=== PATIENT | female | born 1995 | race African-American/Black ===

== ENCOUNTER 2016-11-08 22:31 | Observation (INO) | payer OTHER ==
[~2016-11-08] VITALS: Ht 167.6 cm; Wt 61.9 kg
[~2016-11-08 22:31] MED LIST: AMOXICILLIN500 M1 PO; BACTRIM,SEPT1 TABLET PO; METROGEL-VAGINA70 GM VG; MIDOL COMPLETE1 EACH PO; MOTRIN600 MG PO; MOTRIN800 MG; NOHOMEMEDS; PROAIR HFA8.5 GM IH; SLOW RELEASE I160 MG PO; TRAMADOL HCL50 MG PO; ULTRAM50 MG PO; VENTOLIN HFA18 GM IH; ZOFRAN ODT8 MG PO
[2016-11-08 23:32] LABS: HEMATOCRIT 40.4 % (36.0-46.0); MCH 29.1 PG (29.0-34.0); MCHC 32.4 G/DL (30.0-36.0); MCV 89.8 FL (83-99); RBC DIS.WIDTH-CV 14.8 % (11.8-14.6); RBC DIS.WIDTH-SD 48.7 % (39-53); WHITE BLOOD COUNT 10.7 K/uL (4.1-10.2)
[2016-11-08 23:44] LABS: CHLORIDE 105 mEq/L (99-109); SODIUM 141 mEq/L (136-147)
[2016-11-08 23:46] LABS: GLUCOSE 145 mg/dL (70-99)
[2016-11-08 23:47] LABS: ANION GAP 13 MEQ/L (2-14); MEAN PLAT.VOLUME 10.1 uM^3 (9.5-12.4)
[2016-11-08 23:48] LABS: TOTAL BILIRUBIN 0.8 mg/dL (0.0-1.0)
[2016-11-08 23:49] LABS: ALKALINE PHOSPHATASE 53 IU/L (3-129); GFR ESTIMATE (CALCULATED) > 59 mL/min/
[2016-11-08 23:51] LABS: UREA NITROGEN (BUN) 9 mg/dL (9-23)
[2016-11-08 23:53] LABS: LIPASE 7 U/L (1.0-51.0)
[2016-11-09 00:01] LABS: QUANTITATIVE HCG < 4.0 MIU/ML
[2016-11-09 04:14] LABS: ADD MIUA? YES; BILIRUBIN NEGATIVE; BLOOD NEGATIVE; COLOR YELLOW ((YELLOW)); GLUCOSE (STRIP) NEGATIVE; KETONES 5; LEUKOCYTES NEGATIVE; NITRITE NEGATIVE; PROTEIN (STRIP) NEGATIVE; SPECIFIC GRAVITY 1.042 (1.000-1.030); UROBILINOGEN 0.2 MG/DL (0.2-1.0)
[2016-11-09 04:37] LABS: BACTERIA 3+ /HPF; EPITHELIAL CELLS RARE /HPF; MUCUS TRACE /LPF; WHITE BLOOD CELLS 0-5 /HPF (0-5)
[2016-11-09 06:49] LABS: PLAT.SUFFICIENCY ADEQUATE; PLATELET CLUMPS PRESENT - PLATELET COUNT APPEARS ADQ.
[2016-11-09 06:52] LABS: PLATELET COUNT ND K/uL (156-360)
[2016-11-09 07:43] VITALS: BP 99/57
[2016-11-09 08:00] VITALS: BP 102/60
[2016-11-09 11:39] VITALS: BP 100/55
[2016-11-09 12:03] VITALS: BP 86/51
[2016-11-09 14:56] VITALS: BP 101/63
[2016-11-09] MEDS ORDERED: TYLENOL EXTRA500 MG PO (15:33)
[2016-11-09 21:00] VITALS: BP 116/70
[2016-11-10] VITALS: BP 118/73
[2016-11-10 04:00] VITALS: BP 104/64
[2016-11-10 05:44] LABS: EOSINOPHIL (%) 1.4 % (0-5); EOSINOPHIL COUNT 0.1 K/uL (0-0.3); HEMATOCRIT 33.4 % (36.0-46.0); IMMATURE GRANULOCYTE (%) 0.2 % (0.0-0.7); INSTRUMENT ABS NEUTROPHIL CT 2.8 K/uL; LYMPHOCYTE COUNT 1.6 K/uL (1.0-2.8); MCH 28.2 PG (29.0-34.0); MCHC 31.4 G/DL (30.0-36.0); MCV 89.5 FL (83-99); MONOCYTE (%) 9.5 % (3-12); MONOCYTE COUNT 0.5 K/uL (0-0.8); NEUTROPHIL COUNT 2.8 K/uL (1.8-6.4); RBC DIS.WIDTH-CV 15.3 % (11.8-14.6); RBC DIS.WIDTH-SD 50.4 % (39-53); RED BLOOD COUNT 3.73 M/uL (3.80-5.20)
[2016-11-10 06:34] LABS: ANION GAP 8 MEQ/L (2-14); CHLORIDE 111 MEQ/L (99-109); GFR ESTIMATE (CALCULATED) > 59 mL/min/; SAMPLE HEMOLYSIS CHECK 0; SAMPLE ICTERIC CHECK 0; SAMPLE LIPEMIA CHECK 0; SODIUM 142 MEQ/L (136-147); UREA NITROGEN (BUN) 6 mg/dL (9-23)
[2016-11-10 06:37] LABS: GLUCOSE 79 mg/dL (70-99); POTASSIUM 3.8 MEQ/L (3.7-5.4)
[2016-11-10 06:55] LABS: ABS NEUTROPHIL COUNT 2.9; ANISOCYTOSIS 1+; ATYPICAL LYMPHOCYTE 0.9 %; EOSINOPHIL ABS CT 0.2; EOSINOPHILS 3.5 % (0-5.0); LYMPHOCYTES 32.2 % (15.0-45.0); MACROCYTES 1+; METAMYELOCYTES 0.9 %; PLAT.SUFFICIENCY ADEQUATE; PLATELET COUNT 203 K/uL (156-360); SEG.NEUTROPHILS 58.2 % (46.0-76.0)
[2016-11-10 07:35] VITALS: BP 117/73
[2016-11-10] MEDS ORDERED: FLAGYL500 MG PO (10:44)
[2016-11-10] MEDS ORDERED: LEVAQUIN750 MG PO (10:46)
[2016-11-10 12:30] VITALS: BP 122/72
[2016-11-10] MEDS ORDERED: PREDNISONE50 MG PO (20:36)
[2016-11-10] MEDS ORDERED: PEPCID20 MG PO (20:36)
[2016-11-10] MEDS ORDERED: BENADRYL50 MG PO (20:36)
[2016-11-10] MEDS ORDERED: EPIPEN ADU0.3 MG/0.3 IM (20:38)
== END 2016-11-10 13:00 | disposition home or self-care (01) ==
LOC: EME 22:31 → EDOF 11-09 05:26 → 5WEST 11-09 05:26 → EDOF 11-09 05:26 → 5WEST 11-09 07:22
PROVIDERS: Hospitalist; Physician Assistant
DX: K52.9 Noninfective gastroenteritis and colitis, unspecified (principal); N39.0 Urinary tract infection, site not specified; E87.6 Hypokalemia; I95.9 Hypotension, unspecified; R60.0 Localized edema; E86.0 Dehydration; F17.210 Nicotine dependence, cigarettes, uncomplicated
CPT/HCPCS: 74177; 80048; 80053; 81003; 83690; 84702; 85025; 85027; 87077; 87086; 87177; 87186; 87329; 87493; 99281; 99284; G0378; J0696; J1200; J1630; J1650; J2270; J2405; J2765; J2930; J3010; J3480; J7030; J7040; J7050; S0028; S0030

== ENCOUNTER 2016-11-10 16:14 | Emergency (ER) | payer OTHER ==
[~2016-11-10] VITALS: Ht 167.6 cm; Wt 61.9 kg
[~2016-11-10 16:14] MED LIST changes: +FLAGYL500 MG PO; +LEVAQUIN750 MG PO; +TYLENOL EXTRA500 MG PO
[2016-11-10 17:00] LABS: HEMATOCRIT 35.5 % (36.0-46.0); MCH 28.8 PG (29.0-34.0); MCHC 32.4 G/DL (30.0-36.0); MCV 88.8 FL (83-99); MEAN PLAT.VOLUME 9.8 uM^3 (9.5-12.4); PLATELET COUNT 227 K/uL (156-360); RBC DIS.WIDTH-CV 15.2 % (11.8-14.6); RBC DIS.WIDTH-SD 50.2 % (39-53); WHITE BLOOD COUNT 3.9 K/uL (4.1-10.2)
[2016-11-10 17:13] LABS: CHLORIDE 110 mEq/L (99-109); POTASSIUM 3.7 mEq/L (3.7-5.4); SODIUM 138 mEq/L (136-147)
[2016-11-10 17:16] LABS: ANION GAP 8 MEQ/L (2-14)
[2016-11-10 17:17] LABS: GLUCOSE 161 mg/dL (70-99)
[2016-11-10 17:18] LABS: GFR ESTIMATE (CALCULATED) > 59 mL/min/
[2016-11-10 17:19] LABS: UREA NITROGEN (BUN) 6 mg/dL (9-23)
[2016-11-10 17:26] LABS: QUANTITATIVE HCG < 4.0 MIU/ML
[2016-11-10] MEDS ORDERED: PREDNISONE50 MG PO (20:36)
[2016-11-10] MEDS ORDERED: PEPCID20 MG PO (20:36)
[2016-11-10] MEDS ORDERED: BENADRYL50 MG PO (20:36)
[2016-11-10] MEDS ORDERED: EPIPEN ADU0.3 MG/0.3 IM (20:38)
[2016-11-10 20:55] VITALS: BP 115/61
== END 2016-11-10 20:55 | disposition home or self-care (01) ==
LOC: EME 16:14
PROVIDERS: Emergency Medicine
DX: Z71.1 Person with feared health complaint in whom no diagnosis is made (principal)
CPT/HCPCS: 80048 91; 84702; 85027; 99281; 99285; J1200; J2060; J7030; S0028

== ENCOUNTER 2017-05-11 06:39 | Emergency (ER) | payer OTHER ==
[~2017-05-11] VITALS: Ht 167.6 cm; Wt 54.2 kg
[~2017-05-11 06:39] MED LIST changes: +BENADRYL50 MG PO; +EPIPEN ADU0.3 MG/0.3 IM; +PEPCID20 MG PO; +PREDNISONE50 MG PO
[2017-05-11] MEDS ORDERED: NORCO 5/3251 TABLET PO (07:24)
[2017-05-11] MEDS ORDERED: PEN-VEE K,VEET500 MG PO (07:24)
[2017-05-11 07:41] VITALS: BP 115/63
== END 2017-05-11 07:41 | disposition home or self-care (01) ==
LOC: EME 06:39
DX: K02.9 Dental caries, unspecified (principal); Z87.891 Personal history of nicotine dependence
CPT/HCPCS: 99281; 99283

== ENCOUNTER 2017-07-06 12:00 | Emergency (ER) | payer OTHER ==
[~2017-07-06] VITALS: Ht 170.2 cm; Wt 52.8 kg
[~2017-07-06 12:00] MED LIST changes: +NORCO 5/3251 TABLET PO; +PEN-VEE K,VEET500 MG PO
[2017-07-06 14:33] LABS: HEMOGLOBIN 9.4 G/DL (11.9-15.5); MCH 24.7 PG (29.0-34.0); MCHC 31.3 G/DL (30.0-36.0); MCV 78.7 FL (83-99); PLATELET COUNT 199 K/uL (156-360); RBC DIS.WIDTH-SD 53.8 % (39-53); RED BLOOD COUNT 3.81 M/uL (3.80-5.20); WHITE BLOOD COUNT 9.7 K/uL (4.1-10.2)
[2017-07-06 14:41] LABS: ALBUMIN 3.9 g/dL (3.2-4.8)
[2017-07-06 14:42] LABS: CHLORIDE 105 mEq/L (99-109); POTASSIUM 3.8 mEq/L (3.7-5.4); SODIUM 137 mEq/L (136-147)
[2017-07-06 14:44] LABS: GLUCOSE 96 mg/dL (70-99); TOTAL PROTEIN 7.3 g/dL (6.4-8.3)
[2017-07-06 14:46] LABS: TOTAL BILIRUBIN 0.6 mg/dL (0.0-1.0)
[2017-07-06 14:47] LABS: ALKALINE PHOSPHATASE 69 IU/L (3-129)
[2017-07-06 14:48] LABS: CREATININE 0.8 mg/dL (0.6-1.3); GFR ESTIMATE (CALCULATED) > 59 mL/min/
[2017-07-06 14:49] LABS: AST (GOT) 12 IU/L (2-34); UREA NITROGEN (BUN) 12 mg/dL (9-23)
[2017-07-06 14:50] LABS: ALT (GPT) 11 IU/L (3-49)
[2017-07-06 14:51] LABS: LIPASE 6 U/L (1.0-51.0)
[2017-07-06 14:57] LABS: QUANTITATIVE HCG < 4.0 MIU/ML
[2017-07-06] MEDS ORDERED: NORCO 5/3251 TABLET PO (16:02)
[2017-07-06 16:21] VITALS: BP 100/62
[2017-07-07] MEDS ORDERED: NAPROSYN500 MG PO (23:25)
[2017-07-07] MEDS ORDERED: BACTRIM,SEPT1 TABLET PO (23:25)
[2017-07-07] MEDS ORDERED: ZOFRAN ODT4 MG PO (23:25)
== END 2017-07-06 16:22 | disposition home or self-care (01) ==
LOC: EME 12:00
PROVIDERS: Nurse Practitioner Family
DX: R10.32 Left lower quadrant pain (principal); K08.89 Other specified disorders of teeth and supporting structures; R30.0 Dysuria; K03.81 Cracked tooth; R11.0 Nausea; Z87.440 Personal history of urinary (tract) infections; Z53.29 Procedure and treatment not carried out because of patient's decision for other reasons; Z87.891 Personal history of nicotine dependence
CPT/HCPCS: 74177; 80053; 81003; 83690; 84702; 85027; 99281; 99285; J2405; J7030

== ENCOUNTER 2017-07-07 20:01 | Emergency (ER) | payer OTHER ==
[~2017-07-07] VITALS: Ht 170.2 cm; Wt 52.4 kg
[2017-07-07 21:09] LABS: HEMATOCRIT 30.2 % (36.0-46.0); HEMOGLOBIN 9.5 G/DL (11.9-15.5); MCH 24.6 PG (29.0-34.0); MCHC 31.5 G/DL (30.0-36.0); MCV 78.2 FL (83-99); PLATELET COUNT 207 K/uL (156-360); RBC DIS.WIDTH-CV 19.2 % (11.8-14.6); RBC DIS.WIDTH-SD 54.4 % (39-53); RED BLOOD COUNT 3.86 M/uL (3.80-5.20); WHITE BLOOD COUNT 9.2 K/uL (4.1-10.2)
[2017-07-07 21:18] LABS: CHLORIDE 104 mEq/L (99-109); POTASSIUM 3.7 mEq/L (3.7-5.4); SODIUM 137 mEq/L (136-147)
[2017-07-07 21:20] LABS: GLUCOSE 104 mg/dL (70-99); TOTAL PROTEIN 7.8 g/dL (6.4-8.3)
[2017-07-07 21:22] LABS: TOTAL BILIRUBIN 0.7 mg/dL (0.0-1.0)
[2017-07-07 21:24] LABS: ALKALINE PHOSPHATASE 72 IU/L (3-129); CREATININE 0.9 mg/dL (0.6-1.3); GFR ESTIMATE (CALCULATED) > 59 mL/min/
[2017-07-07 21:25] LABS: UREA NITROGEN (BUN) 13 mg/dL (9-23)
[2017-07-07 21:26] LABS: AST (GOT) 12 IU/L (2-34)
[2017-07-07 21:27] LABS: ALT (GPT) 12 IU/L (3-49)
[2017-07-07 21:35] LABS: QUANTITATIVE HCG < 4.0 MIU/ML
[2017-07-07 23:07] LABS: APPEARANCE SL.HAZY ((CLEAR)); BILIRUBIN NEGATIVE; BLOOD SMALL; COLOR YELLOW ((YELLOW)); GLUCOSE (STRIP) NEGATIVE; KETONES 20; LEUKOCYTES MODERATE; NITRITE POSITIVE; PROTEIN (STRIP) 30; SPECIFIC GRAVITY 1.019 (1.000-1.030)
[2017-07-07 23:21] LABS: BACTERIA 4+ /HPF; EPITHELIAL CELLS RARE /HPF; MUCUS NONE SEEN /LPF; RED BLOOD CELLS 0-5 /HPF (0-5); UCUL ADDED? YES; WHITE BLOOD CELLS 15-20 /HPF (0-5)
[2017-07-07] MEDS ORDERED: BACTRIM,SEPT1 TABLET PO (23:25)
[2017-07-07] MEDS ORDERED: ZOFRAN ODT4 MG PO (23:25)
[2017-07-07] MEDS ORDERED: NAPROSYN500 MG PO (23:25)
[2017-07-07 23:59] VITALS: BP 108/70
== END 2017-07-08 00:04 | disposition home or self-care (01) ==
LOC: EME 20:01
DX: N39.0 Urinary tract infection, site not specified (principal); D64.9 Anemia, unspecified; K03.81 Cracked tooth; R11.2 Nausea with vomiting, unspecified; Z87.891 Personal history of nicotine dependence
CPT/HCPCS: 80053; 81003; 84702; 85027; 87077; 87086; 87186; 99281; 99284